=== PATIENT | male | born 1960 | race Caucasian/White ===

== ENCOUNTER → 2016-09-27 | Day surgery (SDC) | payer OTHER ==
[~2016-09-27] MED LIST: ALBUTEROL 0.5ML INH; ALBUTEROL17 GM INH; ANORO ELLIPTA1 EACH INH; ASPIRIN81 M2 PO; LORTAB 5/500 TA1 TA1 PO; OXYGEN; PRINIVIL20 M1 PO; VITAMIN B122500 MC1; ZOCOR10 MG PO
--- NOTE | ~2016-09-27 | OR ---
Unit #: [id number] #: [id number] Patient: JOSE F VALENTIN [id number] [address] [place], [place] [address] [id number] O MR#: [id number] NAME: JOSE F VALENTIN ROOM: Date of Procedure: 09/27/2016 Admission Date: 09/27/2016 Surgeon: Sudarshan Rock M.D. : 1960 Attending Physician: Sudarshan Rock M.D. Primary Care Physician: Jason Delaney M.D. OPERATIVE REPORT PROCEDURE PERFORMED Colonoscopy to cecum. INDICATIONS FOR PROCEDURE Average risk for colorectal cancer. The patient's father had colon cancer. MEDICATIONS Monitored anesthesia. POSTOPERATIVE FINDINGS Normal exam to cecum. PLAN Repeat colonoscopy in 5 years. DESCRIPTION OF PROCEDURE The patient was explained of the procedure, risks, and benefits along with risks and benefits of anesthesia. He was brought to the endoscopy room. Propofol anesthesia was given. Rectal exam was done, which was normal. Colonoscope was lubricated, passed up the rectum, advanced under direct vision all the way to the cecum. Cecum was identified by ileocecal valve and appendiceal orifice. No polyps, masses, or colitis were seen. Mucosa was normal and healthy. I retroflexed in the rectum. Small hemorrhoids seen. Scope was gently pulled out. He tolerated it well. No major complications were seen. Dictated by... Reanna Jackson/christopher TD: 09/28/2016 04:00 JOB #: [id number] CC: Syed Abebe M.D. Unit #: [id number] #: [id number] Patient: JOSE F VALENTIN OPERATIVE REPORT Page 1 of 1 X Sudarshan Rock MD X PROCEDURE OPERATIVE NOTE
== END | disposition home or self-care (01) ==
LOC: COPS 06:32
DX: Z12.11 Encounter for screening for malignant neoplasm of colon (principal); K64.9 Unspecified hemorrhoids; Z80.0 Family history of malignant neoplasm of digestive organs
CPT/HCPCS: 82947